=== PATIENT | male | born 1945 | race Caucasian/White ===

== ENCOUNTER 2019-09-09 09:32 | Emergency (ER) | payer MEDICARE ==
[~2019-09-09] VITALS: Ht 170.2 cm; Wt 79.5 kg
[2019-09-09] MEDS ORDERED: INSU100V SQ (09:47)
[2019-09-09] MEDS ORDERED: GLUC100019 PO (09:47)
[2019-09-09] MEDS ORDERED: GABA-529 PO (09:47)
[2019-09-09] MEDS ORDERED: BUSP5TAB20 PO (09:47)
[2019-09-09] MEDS ORDERED: TRAM50TA4 PO (09:47)
[2019-09-09] MEDS ORDERED: SUCR1TAB PO (09:47)
[2019-09-09] MEDS ORDERED: LORA-999 PO (09:47)
[2019-09-09] MEDS ORDERED: ATEN25TA PO (09:47)
[2019-09-09 09:49] LABS: GLUCOSE,POINT OF CARE 184 MG/DL (70-110)
[2019-09-09] MEDS ORDERED: LIDOCAINE 5% TRANSDERMAL PATCH TD ONE (12:30)
[2019-09-09 13:42] LABS: BASOPHILS % (AUTO) 0.6 % (0.0-2.0); EOSINOPHILS % (AUTO) 3.2 % (1.0-6.0); HEMATOCRIT 41.5 % (41-53); HEMOGLOBIN 13.5 g/dL (13.5-17.5); LYMPHOCYTES # (AUTO) 1.3 K/uL (1.0-4.8); LYMPHOCYTES % (AUTO) 32.8 % (22.0-44.0); MEAN CORPUSCULAR HEMOGLOBIN 26.8 pg (26.0-34.0); MEAN CORPUSCULAR HGB CONC 32.5 G/dL (31.0-37.0); MEAN CORPUSCULAR VOLUME 82 fL (80-100); MONOCYTES # (AUTO) 0.5 K/uL (0.1-1.0); NEUTROPHILS # (AUTO) 2.2 K/uL (1.8-7.7); NEUTROPHILS % (AUTO) 52.4 % (40.0-70.0); RED BLOOD CELL COUNT(AUTO) 5.04 MIL/uL (4.50-5.90); RED CELL DISTRIBUTION WIDTH 21.1 % (11.5-14.5)
[2019-09-09] MEDS ORDERED: TraMADol HCL 50 MG TABLET PO ONE (13:45)
[2019-09-09 13:52] LABS: ANION GAP 7 mmol/L (8-16); CALCIUM, TOTAL 8.9 mg/dL (8.8-10.5); CARBON DIOXIDE 28 mmol/L (22-29); CHLORIDE 106 mmol/L (98-107); CREATININE 0.79 mg/dL (0.60-1.30); GLUCOSE,RANDOM 158 mg/dL (70-110); POTASSIUM 3.6 mmol/L (3.5-5.1); SODIUM SERUM 141 mmol/L (136-145); UREA NITROGEN, BLOOD 11 mg/dL (7-18)
[2019-09-09 13:53] LABS: GLOMERULAR FILTR. RATE CALC > 60 mL/min (>60); INR 1.3 (0.9-1.1); PROTHROMBIN TIME 13.2 SEC (9.4-11.6)
[2019-09-09 13:58] LABS: ALANINE AMINOTRANSFERASE 32 U/L (12-78); ALBUMIN 3.2 g/dL (3.4-5.0); ALKALINE PHOSPHATASE 210 U/L (46-116); ASPARTATE AMINOTRANSFERASE 38 U/L (15-37); CREATINE KINASE, TOTAL ONLY 47 U/L (39-308)
[2019-09-09 13:59] LABS: PLATELET COUNT (AUTO) 111 K/uL (150-450)
[2019-09-09 14:05] LABS: B-TYPE NATRIURETIC PEPTIDE 74 pg/mL (0-100)
[2019-09-09 14:58] VITALS: BP 128/81
== END 2019-09-09 15:03 | disposition home or self-care (01) ==
LOC: EMS 09:41
DX: M54.5 Low back pain (principal); R07.9 Chest pain, unspecified; R20.0 Anesthesia of skin; E11.9 Type 2 diabetes mellitus without complications; K21.9 Gastro-esophageal reflux disease without esophagitis; I10 Essential (primary) hypertension; F41.9 Anxiety disorder, unspecified; Z88.6 Allergy status to analgesic agent; Z91.011 Allergy to milk products; Z79.4 Long term (current) use of insulin
CPT/HCPCS: 72100; 93005

== ENCOUNTER 2019-09-17 17:15 | Emergency (ER) | payer MEDICARE ==
[~2019-09-17] VITALS: Ht 170.2 cm; Wt 79.0 kg
[~2019-09-17 17:15] MED LIST: ATEN25TA PO; BUSP5TAB20 PO; GABA-529 PO; GLUC100019 PO; INSU100V SQ; LORA-999 PO; SUCR1TAB PO; TRAM50TA4 PO
[2019-09-17 17:25] VITALS: BP 114/73
[2019-09-17 17:36] LABS: GLUCOSE,POINT OF CARE 86 MG/DL (70-110)
[2019-09-17] MEDS ORDERED: LORazepam 1 MG TABLET PO ONE (18:15)
== END 2019-09-17 18:32 | disposition home or self-care (01) ==
LOC: EMS 17:19
DX: F41.9 Anxiety disorder, unspecified (principal); H72.91 Unspecified perforation of tympanic membrane, right ear; M54.5 Low back pain; E11.9 Type 2 diabetes mellitus without complications; I10 Essential (primary) hypertension; K21.9 Gastro-esophageal reflux disease without esophagitis; Z88.6 Allergy status to analgesic agent; Z91.011 Allergy to milk products; Z79.899 Other long term (current) drug therapy; Z79.4 Long term (current) use of insulin

== ENCOUNTER 2019-09-23 20:38 | Emergency (ER) | payer MEDICARE ==
[~2019-09-23] VITALS: Ht 170.2 cm; Wt 82.7 kg
[2019-09-23 20:56] LABS: GLUCOSE,POINT OF CARE 124 MG/DL (70-110)
[2019-09-23] MEDS ORDERED: KETOROLAC TROMETHAMINE 30 MG/ML VIAL IM ONE (22:15)
[2019-09-23 23:25] VITALS: BP 136/81
== END 2019-09-23 23:27 | disposition home or self-care (01) ==
LOC: EMS 20:39
DX: H72.91 Unspecified perforation of tympanic membrane, right ear (principal); H92.11 Otorrhea, right ear; F41.9 Anxiety disorder, unspecified; E11.9 Type 2 diabetes mellitus without complications; K21.9 Gastro-esophageal reflux disease without esophagitis; I10 Essential (primary) hypertension; Z79.4 Long term (current) use of insulin; Z88.6 Allergy status to analgesic agent; Z91.011 Allergy to milk products
CPT/HCPCS: 82962; 96372; 99283; J0690; J1885